=== PATIENT | female | born 1985 | race Caucasian/White ===

== ENCOUNTER → 2016-05-06 | Outpatient (REF) ==
[~2016-05-06] MED LIST: BUSPAR DIVIDOSE15 MG PO; FETZIMA80 PO; L-METHYLFOLATE15 MG PO; LAMICTAL 25MG T25 MG PO; MICROGESTIN 1/21 TAB PO; SYNTHROID0.1 MG/TAB PO; TYLENOL 325MG325 MG PO; VITAMIN D 50,1.25 MG PO; XANAX 0.5MG0.5 MG PO; XANAX XR1 M1 PO; XANAX XR2 M1 PO
[2016-05-06 16:59] LABS: THYROID STIMULATING HORMONE 2.05 uIU/mL (0.465-4.680)
== END ==
LOC: ZLAB.WCH 16:15
PROVIDERS: Family Medicine
DX: Z01.89 Encounter for other specified special examinations (principal)

== ENCOUNTER → 2017-08-29 | Outpatient (REF) ==
[2017-08-29 16:50] LABS: THYROID STIMULATING HORMONE 1.86 uIU/mL (0.465-4.680)
== END ==
LOC: ZLAB.WCH 15:46
PROVIDERS: Internal Medicine
DX: Z01.89 Encounter for other specified special examinations (principal)

== ENCOUNTER → 2018-02-20 | Outpatient (REF) | LOC: ZLAB.WCH 16:06 | DX: Z01.89 Encounter for other specified special examinations (principal) ==

== ENCOUNTER → 2018-02-24 | Outpatient (REF) | LOC: ZLAB.WCH 18:05 | DX: Z01.89 Encounter for other specified special examinations (principal) ==